=== PATIENT | female | born 1975 | race Caucasian/White ===

== ENCOUNTER 2017-05-24 09:22 | Emergency (ER) | payer OTHER ==
[~2017-05-24 09:22] MED LIST: LEXA20TA PO; MACR100C PO; PYRI200T4 PO; ZYRT10TA12 PO
[2017-05-24 09:27] VITALS: BP 135/58; PULSE 86; RESP 18; TEMP 98.3; O2SAT 97
--- NOTE | 2017-05-24 09:37 | PD ---
HPI Chief Complaint: Complaint Time Seen by Provider: 09:37 Travel History International Travel<30 days: No Contact w/Intl Traveler<30days: No Traveled to known affect area: No History of Present Illness HPI 41-year-old female came to the emergency room with history of dysuria for past 3 days. 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 She works nights and was trying to take care of it by [id number] AZO and cranberry pills. She worked last night and noticed that there was a little bit of blood after she urinated and wiped herself. She wore a tampon but then went to the tampon out this morning there was no blood. She didn't see any more blood today after she urinated and wiped herself. She has given us a urine sample and grossly does not appear to be hematuria there. She says she had her last UTI 10 years ago. No history of fever or chills. She does have some flank pain bilaterally she said. Vital signs were otherwise stable. [facility] Past Medical History Narrative Medical List of her past medical, surgical, social and family history was reviewed from the nursing note. Depression: Yes Diminished Hearing: No Social History Alcohol Use: No Tobacco Use: No Substance Use: No Allergies-Medications (Allergen,Severity, Reaction): Coded Allergies: Animal Dander (Verified Allergy, Severe, Swelling, 05/24/17) Careless [place] (Verified Allergy, Severe, 05/24/17) Cultivated Oat Pollen (Verified Allergy, Severe, 05/24/17) Dust (Verified Allergy, Severe, 05/24/17) Grass (Verified Allergy, Severe, Itching, 05/24/17) Comments List of her allergies reviewed from the nursing note. Reported Meds & Prescriptions Reported Meds & Active Scripts Active Macrobid (Nitrofurantoin Monoh/Nitrofur Macro) 100 Mg Cap 100 Mg PO BID 10 Days Reported Lexapro (Escitalopram Oxalate) 10 Mg Tab 10 Mg PO DAILY Cetirizine (Cetirizine HCl) 10 Mg Chew 10 Mg CHEW DAILY Narrative Medication List of her home medications reviewed from the nursing note. Review of Systems Except as stated in HPI: all other systems reviewed are Neg Physical Exam Narrative GENERAL: Awake, alert, SKIN: Focused skin assessment warm/dry. HEAD: Atraumatic. Normocephalic. EYES: Pupils equal and round. No scleral icterus. No injection or drainage. ENT: No nasal bleeding or discharge. Mucous membranes pink and moist. NECK: Trachea midline. No JVD. CARDIOVASCULAR: Regular rate and rhythm. No murmur appreciated. RESPIRATORY: No accessory muscle use. Clear to auscultation. Breath sounds equal bilaterally. GASTROINTESTINAL: Abdomen soft, non-tender, nondistended. Hepatic and splenic margins not palpable. Bilateral minimal flank pain on palpation MUSCULOSKELETAL: No obvious deformities. No clubbing. No cyanosis. No edema. NEUROLOGICAL: Awake and alert. No obvious cranial nerve deficits. Motor grossly within normal limits. Normal speech. PSYCHIATRIC: Appropriate mood and affect; insight and judgment normal. Data Data Last Documented VS Vital Signs Date Time Temp Pulse Resp B/P Pulse Ox O2 Delivery O2 Flow Rate FiO2 05/24/17 09:27 98.3 86 18 135/58 97 Orders Urinalysis - C+S If Indicated (05/24/17 09:41) Ed Urine Pregnancytest Poc (05/24/17 09:41) Nitrofurantoin Monohyd Macrocr (Macrobid (05/24/17 09:45) Urine Culture (05/24/17 09:35) Bedside Glucose CEDRICK.AC&HS (05/24/17 10:00) Labs Laboratory Tests Test 05/24/17 09:35 Urine Collection Type CLEAN CATCH Urine Color YELLOW Urine Turbidity SLIGHT Urine pH 6.0 Urine Specific [place] 1.022 Urine Protein NEG mg/dL Urine Glucose (UA) 250 mg/dL Urine Ketones TRACE mg/dL Urine Occult Blood TRACE Urine Nitrite NEG Urine Bilirubin NEG Urine Leukocyte Esterase NEG Urine RBC 0-3 /hpf Urine WBC 6-8 /hpf Urine Squamous Epithelial > 8 /hpf Cells Urine Bacteria MOD /hpf Microscopic Urinalysis Comment CULTURE INDICATED Urine Collection Time 09:49 MDM Medical Decision Making Medical Screen Exam Complete: Yes Emergency Medical Condition: Yes Medical Record Reviewed: Yes Differential Diagnosis UTI, pyelonephritis Narrative Course 10:09 AM UA is suggestive of UTI but also has some glucosuria. I gave the patient and does of Macrobid. I discussed about the glucosuria and a bedside blood glucose was done which shows 90. However it is not normal to have glucosuria and I have recommended her to follow up with her primary care and get a GTT done. In the meanwhile she should do diet controlled for a prediabetic patient. Procedures EKG Prior to Arrival: No Diagnosis Primary Impression: UTI (urinary tract infection) Qualified Code: N39.0 - Urinary tract infection with hematuria, site unspecified Additional Impression: Glucosuria Referrals: Primary Care Physician Additional Instructions: Please return to the ER if the condition worsens or any other new concerns. Otherwise follow-up with your primary care. Please have your primary care order a GTT outpatient. In the meanwhile restrict on sugar and simple carbohydrates. Exercise more. Take the medication as per the prescription direction. Med/Other Pt SpecificInfo: Prescription(s) given Scripts Nitrofurantoin Monohydrate Macrocrystals (Macrobid)100 Mg [id number] Mg PO BID 10 Days Ref 0 Prov:Tai Box MD 05/24/17 Disposition: 01 DISCHARGE HOME Condition: Stable Tai Box MD May 24, 2017 09:37
[2017-05-24] MEDS ORDERED: NITROFURANTOIN MONOHYD MACROCR 100 MG CAP PO ONE (09:45)
[2017-05-24 09:51] LABS: BLOOD, URINE TRACE (NEG); GLUCOSE,URINE 250 mg/dL (NEG); KETONE, URINE TRACE mg/dL (NEG); NITRITE,URINE NEG (NEG)
[2017-05-24 09:52] LABS: METHOD OF COLLECTION CLEAN CATCH
[2017-05-24] MEDS ORDERED: CETI10CH CHEW (09:52)
[2017-05-24] MEDS ORDERED: LEXA10TA PO (09:52)
[2017-05-24 09:53] LABS: URINE COLOR YELLOW (YELLW/STRAW)
[2017-05-24 09:56] LABS: BACTERIA, URINE MOD /hpf; COMMENT (UR) CULTURE INDICATED; CULTURE IF INDICATED CULTURE INDICATED; RBC, URINE 0-3 /hpf (0-3); SQUAMOUS EPITHELIAL CELL URINE > 8 /hpf (0-5)
[2017-05-24] MEDS ORDERED: MACR100C2 PO (10:11)
== END 2017-05-24 10:25 | disposition home or self-care (01) ==
LOC: PHED 09:22
DX: N39.0 Urinary tract infection, site not specified (principal); R81 Glycosuria; B96.1 Klebsiella pneumoniae [K. pneumoniae] as the cause of diseases classified elsewhere; Z86.59 Personal history of other mental and behavioral disorders
CPT/HCPCS: 81001; 84703; 87077; 87086; 87186; 99283